=== PATIENT | female | born 1950 | race Asian ===

== ENCOUNTER 2016-07-01 14:45 | Outpatient (RCR) | payer OTHER | END 2016-07-25 | disposition home or self-care (01) | LOC: PTY 14:45 | DX: M75.101 Unspecified rotator cuff tear or rupture of right shoulder, not specified as traumatic (principal); S82.034D Nondisplaced transverse fracture of right patella, subsequent encounter for closed fracture with routine healing; X58.XXXD Exposure to other specified factors, subsequent encounter; Z85.9 Personal history of malignant neoplasm, unspecified ==

== ENCOUNTER 2016-08-01 09:50 | Outpatient (RCR) | payer OTHER | END 2016-08-24 | disposition home or self-care (01) | LOC: PTY 09:50 | DX: M75.101 Unspecified rotator cuff tear or rupture of right shoulder, not specified as traumatic (principal); S82.034D Nondisplaced transverse fracture of right patella, subsequent encounter for closed fracture with routine healing | CPT/HCPCS: 97035; 97110; 97140; G0283 ==

== ENCOUNTER 2016-08-28 09:00 | Outpatient (RCR) | payer OTHER | END 2016-09-24 | disposition home or self-care (01) | LOC: PTY 09:00 | DX: M75.101 Unspecified rotator cuff tear or rupture of right shoulder, not specified as traumatic (principal); S82.034D Nondisplaced transverse fracture of right patella, subsequent encounter for closed fracture with routine healing | CPT/HCPCS: 97110; 97140; G0283 ==

== ENCOUNTER 2016-09-25 08:00 | Outpatient (RCR) | payer OTHER | END 2016-10-24 | disposition home or self-care (01) | LOC: PTY 08:00 | DX: M75.101 Unspecified rotator cuff tear or rupture of right shoulder, not specified as traumatic (principal); S82.034D Nondisplaced transverse fracture of right patella, subsequent encounter for closed fracture with routine healing; M75.51 Bursitis of right shoulder; M75.01 Adhesive capsulitis of right shoulder | CPT/HCPCS: 97110; 97140; G0283 ==

== ENCOUNTER 2016-11-07 13:00 | Outpatient (RCR) | payer OTHER | END 2016-11-24 | disposition home or self-care (01) | LOC: PTY 13:00 | DX: M75.101 Unspecified rotator cuff tear or rupture of right shoulder, not specified as traumatic (principal); M75.51 Bursitis of right shoulder; M75.01 Adhesive capsulitis of right shoulder | CPT/HCPCS: 97110; 97140; G0283 ==

== ENCOUNTER 2016-12-24 08:46 | Outpatient (RCR) | payer OTHER | END 2016-12-25 | disposition home or self-care (01) | LOC: PTY 08:46 | DX: M75.51 Bursitis of right shoulder (principal); M75.01 Adhesive capsulitis of right shoulder | CPT/HCPCS: 97110; 97140; G0283 ==

== ENCOUNTER 2017-03-24 09:00 | Outpatient (RCR) | payer OTHER | END 2017-03-26 | disposition home or self-care (01) | LOC: PTY 09:00 | DX: M25.512 Pain in left shoulder (principal) | CPT/HCPCS: 97140; 97162; G0283 ==

== ENCOUNTER 2017-04-22 09:00 | Outpatient (RCR) | payer OTHER | END 2017-04-26 | disposition home or self-care (01) | LOC: PTY 09:00 | DX: M25.512 Pain in left shoulder (principal) | CPT/HCPCS: 97035; 97110; 97140; G0283 ==

== ENCOUNTER 2017-04-29 10:27 | Outpatient (RCR) | payer OTHER | END 2017-05-27 | disposition home or self-care (01) | LOC: PTY 10:27 | DX: M25.512 Pain in left shoulder (principal); M75.51 Bursitis of right shoulder | CPT/HCPCS: 97035; 97140; G0283 ==

== ENCOUNTER 2017-05-29 09:40 | Outpatient (RCR) | payer OTHER | END 2017-06-24 | disposition home or self-care (01) | LOC: PTY 09:40 | DX: M25.512 Pain in left shoulder (principal); M75.51 Bursitis of right shoulder ==

== ENCOUNTER 2017-07-02 08:15 | Outpatient (RCR) | payer OTHER | END 2017-07-25 | disposition home or self-care (01) | LOC: PTY 08:15 | DX: M25.512 Pain in left shoulder (principal); M75.51 Bursitis of right shoulder | CPT/HCPCS: 97110; 97140; G0283 ==

== ENCOUNTER 2017-07-27 14:30 | Outpatient (RCR) | payer OTHER | END 2017-08-24 | disposition home or self-care (01) | LOC: PTY 14:30 | DX: M25.512 Pain in left shoulder (principal) ==